=== PATIENT | female | born 1975 | race Caucasian/White ===

== ENCOUNTER 2018-05-29 16:09 | Emergency (ER) | payer MEDICAID ==
[~2018-05-29] VITALS: Ht 165.1 cm; Wt 81.6 kg
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
[2018-05-29 16:33] VITALS: BP 144/73
--- NOTE | 2018-05-29 16:41 | NUR ---
BROUGHT IN BY EMS S/P [employer]OME[employer] OFFICER NESHA BRADLEY AT BEDSIDE, PT C/O RIGHT BICEP PAIN AND NECK TENDERNESS---FULL ROM NO OBVIOUS DISCOLORATIONS OR STRIATIONS NOTED TO EXTREMITIES, NECK , OR BACK NO HEMATOMANS PALPATED OVER SCALP. PT DENIES N/V/D; SKIN IS INTACT, PINK/WARM/DRY; AAOX4, PERRL, WITH EVEN AND STEADY GAIT; LUNGS CLEAR BL, BREATHING UNLABORED; HR EVEN AND REGULAR, BL PERIPHERAL PULSES PRESENT; BS ACTIVE X4, NO TENDERNESS TO PALPATION, NO HEPATOSPLENOMEGALLY PALPATED, RESONANT TO PERCUSSION; PT DENIES ANY FEVER, CP, SOB, OR COUGH AT THIS TIME; PT STATES 8/10 PAIN TO R BICEP AND NECK AT THIS TIME; VSS; PATIENT POSITIONED FOR COMFORT; HOB ELEVATED; BEDRAILS UP X2; BED DOWN.
--- NOTE | 2018-05-29 16:43 | NUR ---
REPORT GIVEN TO OFFICER NESHA FROM [facility]. REPORT NUMBER [id number].
--- NOTE | 2018-05-29 17:30 | NUR ---
PT ON BED IN NAD, NO REQUESTS AT THIS TIME.
--- NOTE | 2018-05-29 18:34 | NUR ---
PT ON BED IN NAD, NO REQUESTS AT THIS TIME.
[2018-05-29] MEDS ORDERED: KETOROLAC 60 MG/2 ML VIAL IM ONE (18:40)
[2018-05-29] MEDS ORDERED: ACETAMINOPHEN EXTRA STRENGTH 500 MG TAB PO ONE (18:50)
[2018-05-29] MEDS ORDERED: ACETAMINOPHEN EXTRA STRENGTH 500 MG TAB ONE (18:55)
--- NOTE | 2018-05-29 19:19 | NUR ---
REPORT GIVEN TO BRIEN NAVAS
--- NOTE | 2018-05-29 20:02 | NUR ---
SLING IMMOBILIZER APPLIED TO R ARM, SIZE MEDIUM. +CSM
[2018-05-29 20:09] VITALS: BP 100/69
--- NOTE | 2018-05-29 20:09 | NUR ---
Patient discharged with v/s stable. Written and verbal after care instructions given and explained. Patient alert, oriented and verbalized understanding of instructions. Ambulatory with steady gait. All questions addressed prior to discharge. ID band removed. Patient advised to follow up with PMD. Rx of Tramadol and Motrin given. Patient educated on indication of medication including possible reaction and side effects. Opportunity to ask questions provided and answered.
== END 2018-05-29 20:09 | disposition home or self-care (01) ==
LOC: MED 16:09
DX: S43.401A Unspecified sprain of right shoulder joint, initial encounter (principal); S16.1XXA Strain of muscle, fascia and tendon at neck level, initial encounter; X58.XXXA Exposure to other specified factors, initial encounter; Y93.89 Activity, other specified; Y92.89 Other specified places as the place of occurrence of the external cause; Y99.8 Other external cause status
CPT/HCPCS: 72040; 73030; 73060; 99284

== ENCOUNTER 2019-11-23 03:38 | Emergency (ER) | payer MEDICAID ==
[~2019-11-23] VITALS: Ht 160 cm; Wt 75.3 kg
[2019-11-23 03:40] VITALS: BP 109/65
--- NOTE | 2019-11-23 03:48 | NUR ---
PT AMBULATED TO BED #7
--- NOTE | 2019-11-23 03:48 | NUR ---
44 Y/O FEMALE BIB SELF C/O RIGHT EAR PAIN X 2 DAYS. PAIN IS A 9/10 CONTINIOUS SHARP PAIN THAT RADIATES FROM THE RIGHT EAR TO THE RIGHT SIDE OF MANDIBLE AND NECK. RIGHT EAR IS RED AND SWOLLEN; NO DRAINAGE NOTED. DENIES DIZZINESS; -N/V/D/FEVER/CHILLS. PATIENT STATES THAT SHE CAN BARELY HEAR IN THE RIGHT EAR COMPARED TO THE LEFT EAR. ERMD MADE AWARE OF STATUS. SIDE RAILSX1. WILL CONTINUE TO MONITOR. PMH:DENIES RX:DENIES NKDA
--- NOTE | 2019-11-23 04:04 | NUR ---
ERMD AT BEDSIDE EVALUATING PATIENT.
[2019-11-23 04:24] VITALS: BP 107/64
--- NOTE | 2019-11-23 04:24 | NUR ---
Patient discharged with v/s stable. Written and verbal after care instructions given and explained. Patient alert, oriented and verbalized understanding of instructions. Ambulatory with steady gait. All questions addressed prior to discharge. ID band removed. Patient advised to follow up with PMD. Rx of CIPRODEX; NAPROSYN given. Patient educated on indication of medication including possible reaction and side effects. Opportunity to ask questions provided and answered.
== END 2019-11-23 04:24 | disposition home or self-care (01) ==
LOC: MED 03:38
DX: H60.91 Unspecified otitis externa, right ear (principal); Z98.890 Other specified postprocedural states
CPT/HCPCS: 99283

== ENCOUNTER 2020-02-15 04:59 | Emergency (ER) | payer MEDICAID ==
[~2020-02-15] VITALS: Ht 160 cm; Wt 78.6 kg
[2020-02-15 05:02] VITALS: BP 118/65
[2020-02-15] MEDS ORDERED: ALBUTEROL SULFATE/IPRATROPIU 3 ML SOL IH ONE (05:20)
--- NOTE | 2020-02-15 05:20 | NUR ---
44 YO F BIB SELF C/C OF 7/10 PAIN IN HER THROAT AND LEFT SIDE OF NECK X3 DAYS THAT WORSENS AT NIGHT. PT SAYS SHE HAS NO COUGH BUT YELLOW PHLEGM. PT DENIES FEVER, COUGH, SOB, OR TRAVEL. EQUAL CHEST RISE AND FALL. LUNG SOUNDS CLEAR THROUGHOUT. PT PLACED ON PULSE OX AND SATING AT 100% ROOM AIR. DENIES TAKING ANY MEDICATIONS AT HOME FOR SYMPTOMS. BED LOCKED AND IN LOWEST POSITION. SIDE RAILS X1. NKA NO RX MED HX: ASTHMA Addendum: 02/15/20 at 0529 by [email or web address] 44 YO F BIB SELF C/C OF 7/10 PAIN IN HER THROAT AND LEFT SIDE OF NECK X3 DAYS THAT WORSENS AT NIGHT. PT SAYS SHE FEELS SOB, HAS NO COUGH BUT YELLOW PHLEGM. PT DENIES FEVER, COUGH, OR TRAVEL. EQUAL CHEST RISE AND FALL. LUNG SOUNDS CLEAR THROUGHOUT. PT PLACED ON PULSE OX AND SATING AT 100% ROOM AIR. DENIES TAKING ANY MEDICATIONS AT HOME FOR SYMPTOMS. BED LOCKED AND IN LOWEST POSITION. SIDE RAILS X1. NKA NO RX MED HX: ASTHMA
--- NOTE | 2020-02-15 05:40 | NUR ---
rt at bedside
--- NOTE | 2020-02-15 05:45 | NUR ---
RAD AT BEDSIDE
[2020-02-15 05:58] VITALS: BP 118/65
== END 2020-02-15 05:59 | disposition home or self-care (01) ==
LOC: MED 04:59
DX: J45.901 Unspecified asthma with (acute) exacerbation (principal)
CPT/HCPCS: 71045; 94640; 99283; Q0092